=== PATIENT | male | born 1970 | race Caucasian/White ===

== ENCOUNTER 2024-07-22 18:25 | Emergency (ER) | payer OTHER, SELFPAY ==
[2024-07-22 18:30] VITALS: BP 155/92; BMI 29.5
[2024-07-22 19:00] VITALS: BP 147/105
[2024-07-22] MEDS: ADACEL 0.5 ML IM (19:17)
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
== END 2024-07-22 20:05 | disposition home or self-care (01) ==
LOC: EMR 18:25
PROVIDERS: EMERGENCY PHYSICIAN Emergency Medicine; FAMILY PHYSICIAN Family Medicine
DX: S20.212A Contusion of left front wall of thorax, initial encounter (principal); S80.212A Abrasion, left knee, initial encounter; V13.4XXA Pedal cycle driver injured in collision with car, pick-up truck or van in traffic accident, initial encounter; E78.00 Pure hypercholesterolemia, unspecified; I10 Essential (primary) hypertension; Z23 Encounter for immunization
CPT/HCPCS: 99284; 90471; 71101; 90715; 93005